=== PATIENT | female | born 1975 | race Caucasian/White ===

== ENCOUNTER 2021-10-17 08:00 | Inpatient (IN) | payer OTHER ==
[2021-11-23 10:19] VITALS: BMI 35.4
[2021-11-28] MEDS ORDERED: CEFAZOLIN 2 GM in DEXTROSE 5%-WATER - 100 ML IVPB ONE (07:00)
[2021-11-28] MEDS ORDERED: ceFAZolin SODIUM 1 GM VIAL ONE ×2 (08:36→19:22)
[2021-11-28] MEDS ORDERED: MIDAZOLAM HCL 2 MG/2 ML SINGLE DOSE VIAL ONE ×2 (10:23)
[2021-11-28] MEDS ORDERED: ceFAZolin SODIUM 1 GM VIAL IVPB ONE (11:15)
[2021-11-28] MEDS ORDERED: ACETAMINOPHEN 1000 MG/100 ML BAG IVPB ONE (13:15)
[2021-11-28] MEDS ORDERED: oxyCODONE HCL 5 MG TABLET PO PRN (13:15)
[2021-11-28] MEDS ORDERED: LACTATED RINGERS SOLUTION 1,000 ML IV SCH (13:15)
[2021-11-28] MEDS ORDERED: HYDROmorphone *PCA* 10MG/50ML DISP.SYRIN ONE (13:17)
[2021-11-28] MEDS ORDERED: DOCUSATE SODIUM 100 MG CAPSULE (FP) PO PRN (13:20)
[2021-11-28] MEDS ORDERED: ONDANSETRON 4 MG/2 ML VIAL IVPUSH PRN ×3 (13:20→13:34)
[2021-11-28] MEDS ORDERED: BISACODYL 5 MG TABLET.DR (FP) PO PRN (13:20)
[2021-11-28] MEDS ORDERED: PROMETHAZINE HCL 25 MG/1 ML VIAL IVPB PRN (13:34)
[2021-11-28] MEDS ORDERED: DEXAMETHASONE SOD PHOSPHATE 4 MG/1 ML VIAL IVPUSH PRN (13:34)
[2021-11-28] MEDS ORDERED: HYDROmorphone *PCA* 10MG/50ML DISP.SYRIN PCA ONE (13:45)
[2021-11-28] MEDS: HYDROmorphone *PCA* 10MG/50ML DISP.SYRIN PCA SCH (15:00)
[2021-11-28] MEDS: ACETAMINOPHEN 325 MG TABLET (FP) PO SCH ×2 (16:34→20:30)
[2021-11-28] MEDS: SODIUM CHLORIDE 1,000 ML IV SCH (16:34)
[2021-11-28] MEDS ORDERED: ACETAMINOPHEN 1000 MG/100 ML BAG IVPB PRN (18:41)
[2021-11-28] MEDS ORDERED: IBUPROFEN 800 MG/8 ML IJ IVPB PRN (18:42)
[2021-11-28] MEDS ORDERED: HYDROmorphone *PCA* 10MG/50ML DISP.SYRIN PCA SCH (18:45)
[2021-11-28] MEDS ORDERED: DEXTROSE 5%-WATER - 50 ML IVPB ONE (19:22)
[2021-11-28] MEDS: CEFAZOLIN 1 GM in DEXTROSE 5%-WATER - 50 ML IVPB SCH (19:30)
[2021-11-28] MEDS: IBUPROFEN 800 MG/8 ML IJ IVPB SCH (19:31)
[2021-11-28] MEDS: SIMETHICONE 80 MG TAB.CHEW (FP) PO PRN (21:19)
[2021-11-29] MEDS: ACETAMINOPHEN 325 MG TABLET (FP) PO SCH ×4 (00:36→13:19)
[2021-11-29] MEDS ORDERED: ceFAZolin SODIUM 1 GM VIAL ONE ×2 (03:06→10:08)
[2021-11-29] MEDS ORDERED: DEXTROSE 5%-WATER - 50 ML IVPB ONE ×2 (03:06→10:08)
[2021-11-29] MEDS: SIMETHICONE 80 MG TAB.CHEW (FP) PO PRN ×4 (03:17→22:18)
[2021-11-29] MEDS: CEFAZOLIN 1 GM in DEXTROSE 5%-WATER - 50 ML IVPB SCH ×2 (03:17→10:12)
[2021-11-29] MEDS: IBUPROFEN 800 MG/8 ML IJ IVPB SCH (03:18)
[2021-11-29] MEDS: SODIUM CHLORIDE 1,000 ML IV SCH ×2 (04:00→18:56)
[2021-11-29 06:54] LABS: HEMATOCRIT 27.3 % (32.4-45.2); HEMOGLOBIN 8.7 GM/dL (10.7-15.3); MCH 24.1 pg (25.7-33.7); MCHC 31.8 g/dl (32.0-36.0); MEAN CELL VOLUME 75.6 fl (80-96); MEAN PLT VOLUME 8.1 fl (7.5-11.1); PLATELET COUNT 238 10^3/uL (134-434); RBC 3.62 M/mm3 (3.60-5.2); RDW 17.5 % (11.6-15.6); WHITE BLOOD COUNT 8.4 K/mm3 (4.0-10.0)
[2021-11-29 07:08] LABS: BLOOD UREA NITROGEN 10.8 mg/dL (7-18)
[2021-11-29 07:11] LABS: CREATININE 0.8 mg/dL (0.55-1.3)
[2021-11-29 07:21] LABS: CALCIUM 7.7 mg/dL (8.5-10.1)
[2021-11-29] MEDS: HYDROCHLOROTHIAZIDE 25 MG TABLET (FP) PO SCH (09:47)
[2021-11-29] MEDS: LISINOPRIL 20 MG TABLET PO SCH (09:47)
[2021-11-29] MEDS: ENOXAPARIN NA (PORCINE) 40 MG/0.4 ML DISP.SYRIN SQ SCH (09:48)
[2021-11-29] MEDS ORDERED: PATIENT'S OWN MEDICATION (NON-FORMULARY) (Lisinopril/Hydrochlorothiazide [Lisinopril-Hctz PO SCH (10:00)
[2021-11-29] MEDS ORDERED: IBUPROFEN 600 MG TABLET (FP) PO PRN ×2 (13:20→18:06)
[2021-11-29] MEDS: HYDROmorphone *PCA* 10MG/50ML DISP.SYRIN PCA SCH (15:57)
[2021-11-29] MEDS ORDERED: ACETAMINOPHEN 500 MG TABLET (FP) PO SCH (17:47)
[2021-11-29] MEDS: oxyCODONE HCL 5 MG TABLET PO PRN (22:18)
[2021-11-30] MEDS: oxyCODONE HCL 5 MG TABLET PO PRN (07:44)
[2021-11-30] MEDS: ENOXAPARIN NA (PORCINE) 40 MG/0.4 ML DISP.SYRIN SQ SCH (09:41)
[2021-11-30] MEDS: LISINOPRIL 20 MG TABLET PO SCH (09:41)
[2021-11-30] MEDS: HYDROCHLOROTHIAZIDE 25 MG TABLET (FP) PO SCH (09:42)
[2021-11-30 11:55] VITALS: BP 125/75; PULSE 82; TEMP 98.9
== END 2021-11-30 13:25 | disposition home or self-care (01) | DRG 519 ==
LOC: J2C 11-28 04:02 → J3W 11-28 14:45
PROVIDERS: ADMIT Specialist; ATTEND Specialist
PROC: 0UT70ZZ Resection of Bilateral Fallopian Tubes, Open Approach (ICD-10-PCS; 2021-11-28)
PROC: 0UT10ZZ Resection of Left Ovary, Open Approach (ICD-10-PCS; 2021-11-28)
PROC: 0UT90ZZ Resection of Uterus, Open Approach (ICD-10-PCS; principal; 2021-11-28 10:30)
DX: D25.9 Leiomyoma of uterus, unspecified (principal); F41.9 Anxiety disorder, unspecified; D50.9 Iron deficiency anemia, unspecified; G47.30 Sleep apnea, unspecified; I10 Essential (primary) hypertension
CPT/HCPCS: 36415; 80048; 81025; 84702; 85027; 86900; 86922; 88302-TC; 88307-TC; 94010; 94760